=== PATIENT | male | born 1960 | race African-American/Black ===

== ENCOUNTER → 2019-05-11 10:29 | Outpatient (CLI) | payer BC, SELFPAY ==
--- NOTE | ~2019-05-11 | US_ITS ---
US abdomen complete EXAMINATION: US Abdomen Complete INDICATION: Normal liver enzymes. High ferritin. PROCEDURE: Realtime High Resolution abdomen ultrasound. COMPARISON: No prior studies for comparison FINDINGS: Gallbladder within normal limits. No gallstones, pericholecystic fluid, gallbladder wall t hickening or biliary dilatation. Common bile duct measures 3 mm. Liver echotexture within normal limits without focal mass. Pancreas not well visualized due to bowel gas. Pancreatic tail is obscured by bowel gas. Spleen is unremarkeable. Renal echotexture is within normal limits bilaterally without hydronephrosis, contour deforming mass or renal stone. Right kidne y measures 8.7 cm. Left kidney measures 9 cm. Visualized aspects of the aorta and IVC are within normal limits. Portal vein is patent. No sonograph ic Alatorre's sign indicated by the technologist. IMPRESSION: 1: Normal abdominal ultrasound. Reviewed, dictated and finalized at location A.
== END ==
PROVIDERS: PCP Emergency Medicine; Visit Provider Emergency Medicine
DX: K76.0 Fatty (change of) liver, not elsewhere classified (principal); R79.89 Other specified abnormal findings of blood chemistry
CPT/HCPCS: 76700